=== PATIENT | female | born 1945 | race Hispanic/Latino ===

== ENCOUNTER → 2017-05-29 | Outpatient (CLI) | payer OTHER ==
[~2017-05-29] VITALS: Ht 157.5 cm; Wt 84.5 kg
[~2017-05-29] MED LIST: CALC-190 PO; CALC-909 PO; FERR-82 PO; HEPARIN SODIUM 1000UNIT/ML 10ML VIAL ONE; LACTATED RINGERS 1000ML 1,000 ML IV ONE; OMEP40CA37 PO
[2017-05-29 14:22] VITALS: BP 166/78
[2017-05-29 14:27] LABS: APPEARANCE,URINE Cloudy (CLEAR); BILIRUBIN,URINE Large (NEGATIVE); GLUCOSE, URINE (UA) Negative (NEGATIVE); KETONES,URINE Negative (NEGATIVE); LEUKOCYTE ESTERASE ,URINE Moderate (NEGATIVE); NITRATE,URINE Positive (NEGATIVE); OCCULT BLOOD,URINE Negative (NEGATIVE); PH,URINE 5.5 (5.0-8.0); PROTEIN,URINE Trace (NEGATIVE)
[2017-05-29 14:32] LABS: COLOR,URINE Amber (YELLOW)
[2017-05-29 14:42] LABS: ALBUMIN 3.3 g/dL (3.5-5.0); BILIRUBIN,TOTAL 15.4 mg/dL (0.2-1.0); CREATININE 0.6 mg/dL (0.5-1.5); POTASSIUM 4.3 mmol/L (3.5-5.1); TOTAL PROTEIN, SERUM 6.8 g/dL (6.0-8.3)
[2017-05-29 14:46] LABS: HEMATOCRIT 38.9 % (36-48); MEAN CORPUSCULAR HEMOGLOBIN 27.6 pg (27.0-33.0); MEAN CORPUSCULAR HGB CONC 33.9 g/dL (32.0-36.0); MEAN CORPUSCULAR VOLUME 81.3 fL (79-99); PLATELET COUNT (AUTO) 196 K/uL (130-400); RED BLOOD CELL COUNT(AUTO) 4.78 MIL/uL (4.00-5.50); RED CELL DISTRIBUTION WIDTH 17.4 % (11.0-15.5)
[2017-05-29 14:57] LABS: BILIRUBIN,DIRECT 12.3 mg/dL (0.0-0.3)
[2017-05-29 15:09] LABS: EOSINOPHILS % (MANUAL) 4 % (1-6); LYMPHOCYTES % (MANUAL) 18 % (22-44); MONOCYTES % (MANUAL) 11 % (2-9); REACTIVE LYMPHOCYTES 6 % (0-0); SEGMENTED NEUTROPHILS % 61 % (40-70)
[2017-05-29 15:10] LABS: MAN.DIFF COMMENT-IMPRESSION MANUAL DIFFERENTIAL; PLATELET MORPHOLOGY COMMENT ADEQUATE
[2017-05-29 15:32] LABS: BACTERIA,URINE Few /HPF (None Seen); RBC,URINE None Seen /HPF (0-1)
[2017-05-29 15:33] LABS: AMORPHOUS SEDIMENT,UR Few /LPF (None Seen); MUCUS,URINE Few LPF (None Seen)
[2017-05-31 06:14] VITALS: BP 141/81
[2017-05-31 06:35] LABS: ALBUMIN 3.1 g/dL (3.5-5.0); TOTAL PROTEIN, SERUM 6.6 g/dL (6.0-8.3)
== END | disposition home or self-care (01) ==
LOC: DAH 10:00 → EDSTATUS 13:30 → DAH 05-31 05:49
PROVIDERS: ATTEND Surgery
DX: K80.10 Calculus of gallbladder with chronic cholecystitis without obstruction (principal)
CPT/HCPCS: 36415; 80048; 80076; 81001; 85025; 87088

== ENCOUNTER → 2017-06-01 | Outpatient (CLI) | payer OTHER ==
[~2017-06-01] MED LIST changes: -HEPARIN SODIUM 1000UNIT/ML 10ML VIAL ONE; -LACTATED RINGERS 1000ML 1,000 ML IV ONE
== END | disposition home or self-care (01) ==
LOC: RAH 07:15
PROVIDERS: ATTEND Surgery
DX: K80.64 Calculus of gallbladder and bile duct with chronic cholecystitis without obstruction (principal); K44.9 Diaphragmatic hernia without obstruction or gangrene; R93.49 Abnormal radiologic findings on diagnostic imaging of other urinary organs
CPT/HCPCS: 74181

== ENCOUNTER → 2017-06-20 | Day surgery (SDC) | payer OTHER ==
[~2017-06-20] VITALS: Ht 154.9 cm; Wt 82.1 kg
[~2017-06-20] MED LIST changes: +FENTANYL CITRATE PF 50 MCG/1 ML 2ML VIAL ONE; +GLUCAGON 1MG KIT 1 MG ML ONE; +INDOMETHACIN 50 MG SUPP.RECT RC SCH; +ISOVUE-370 50ML VIAL IV ONE; +MIDAZOLAM HCL 1 MG/ML 2ML VIAL ONE; +PROPOFOL 10 MG/ML 20ML VIAL IV ONE
[2017-06-20 11:29] VITALS: BP 170/71
[2017-06-20 12:32] VITALS: BP 104/62
== END ==
LOC: SUH 08:40
PROVIDERS: ATTEND Internal Medicine
DX: K80.50 Calculus of bile duct without cholangitis or cholecystitis without obstruction (principal); R17 Unspecified jaundice
CPT/HCPCS: 43260; 74330; A4606; C1769; J1610; J2250; J2704; J3010; Q9967

== ENCOUNTER 2017-07-04 08:23 | Day surgery (SDC) | payer OTHER ==
[~2017-07-04] VITALS: Ht 157.5 cm; Wt 83.9 kg
[~2017-07-04 08:23] MED LIST changes: -CALC-909 PO; -FENTANYL CITRATE PF 50 MCG/1 ML 2ML VIAL ONE; -GLUCAGON 1MG KIT 1 MG ML ONE; -INDOMETHACIN 50 MG SUPP.RECT RC SCH; -ISOVUE-370 50ML VIAL IV ONE; -MIDAZOLAM HCL 1 MG/ML 2ML VIAL ONE; -PROPOFOL 10 MG/ML 20ML VIAL IV ONE; +SODIUM CHLORIDE 0.9% 1000ML 1,000 ML IV ONE
[2017-07-04 08:28] VITALS: BP 171/83
[2017-07-04] MEDS ORDERED: ISOVUE-370 50ML VIAL IV ONE (09:03)
[2017-07-04] MEDS ORDERED: PROPOFOL 10 MG/ML 20ML VIAL IV ONE (09:06)
[2017-07-04] MEDS ORDERED: INDOMETHACIN 50 MG SUPP.RECT RC SCH (09:30)
[2017-07-24] MEDS ORDERED: CALC-909 PO (11:36)
== END 2017-07-04 10:38 | disposition home or self-care (01) ==
LOC: ENDO 08:23 → DAH 08:23 → ENDO 10:38
PROVIDERS: ATTEND Internal Medicine Gastroenterology
DX: K83.8 Other specified diseases of biliary tract (principal); D64.89 Other specified anemias; K21.9 Gastro-esophageal reflux disease without esophagitis; E66.9 Obesity, unspecified; Z87.19 Personal history of other diseases of the digestive system; Z79.899 Other long term (current) drug therapy
CPT/HCPCS: 43277; 74330; A4606; C1769; C1773; J2704; J7030; Q9967

== ENCOUNTER 2017-07-26 06:45 | Day surgery (SDC) | payer OTHER ==
[2017-07-24 11:05] VITALS: BP 160/80
[2017-07-24 11:21] LABS: BASOPHILS % (AUTO) 0.7 % (0.0-5.0); EOSINOPHILS % (AUTO) 2.2 % (0.0-8.0); HEMATOCRIT 37.3 % (36-48); LYMPHOCYTES % (AUTO) 31.1 % (21.0-51.0); MEAN CORPUSCULAR HGB CONC 34.6 g/dL (32.0-36.0); MEAN CORPUSCULAR VOLUME 83.7 fL (79-99); MONOCYTES % (AUTO) 8.9 % (3.0-13.0); NEUTROPHILS % (AUTO) 57.1 % (40.0-77.0); NUCLEATED RED BLOOD CELLS 0.1 % (0.0-0.19); PLATELET COUNT (AUTO) 233 K/uL (130-400); RED BLOOD CELL COUNT(AUTO) 4.46 MIL/uL (4.00-5.50); RED CELL DISTRIBUTION WIDTH 16.9 % (11.0-15.5); WHITE BLOOD COUNT (AUTO) 4.6 K/uL (4.8-10.8)
[2017-07-24 11:35] LABS: ALBUMIN 3.3 g/dL (3.5-5.0); BILIRUBIN,DIRECT 0.2 mg/dL (0.0-0.3); BILIRUBIN,TOTAL 0.3 mg/dL (0.2-1.0); CREATININE 0.8 mg/dL (0.5-1.5); POTASSIUM 4.5 mmol/L (3.5-5.1); TOTAL PROTEIN, SERUM 6.8 g/dL (6.0-8.3)
[2017-07-26] VITALS (14 sets, daily range): BP systolic 114–154; BP diastolic 59–90
[~2017-07-26] VITALS: Ht 154.9 cm; Wt 82.9 kg
[~2017-07-26 06:45] MED LIST changes: -CALC-190 PO; +CALC-909 PO; -SODIUM CHLORIDE 0.9% 1000ML 1,000 ML IV ONE
[2017-07-26] MEDS ORDERED: LACTATED RINGERS 1000ML 1,000 ML IV ONE (08:04)
[2017-07-26] MEDS ORDERED: GLYCOPYRROLATE 0.2 MG/ML 5 ML VIAL ONE (08:21)
[2017-07-26] MEDS ORDERED: LIDOCAINE PF 2% 5ML ABBOJECT ONE (08:21)
[2017-07-26] MEDS ORDERED: ONDANSETRON HCL 4 MG/2 ML VIAL ONE (08:21)
[2017-07-26] MEDS ORDERED: DEXAMETHASONE SOD PHOSPHATE 10MG/ML 1ML VIAL ONE (08:21)
[2017-07-26] MEDS ORDERED: NEOSTIGMINE 5MG/5ML SYR IV ONE (08:22)
[2017-07-26] MEDS ORDERED: SUCCINYLCHOLINE 200MG/10ML SYR ONE (08:22)
[2017-07-26] MEDS ORDERED: PROPOFOL 10 MG/ML 20ML VIAL IV ONE (08:22)
[2017-07-26] MEDS ORDERED: FENTANYL CITRATE PF 50 MCG/1 ML 2ML VIAL ONE (08:22)
[2017-07-26] MEDS ORDERED: MIDAZOLAM HCL 1 MG/ML 2ML VIAL ONE (08:22)
[2017-07-26] MEDS ORDERED: HEPARIN SODIUM 1000UNIT/ML 10ML VIAL ONE (08:32)
[2017-07-26] MEDS ORDERED: MORPHINE SULFATE 4 MG/1ML SYG ONE (09:57)
== END 2017-07-26 11:45 | disposition home or self-care (01) ==
LOC: DAH 06:45
PROVIDERS: ATTEND Surgery
DX: K80.12 Calculus of gallbladder with acute and chronic cholecystitis without obstruction (principal); Z68.34 Body mass index [BMI] 34.0-34.9, adult; E66.9 Obesity, unspecified
CPT/HCPCS: 36415; 47562; 80048; 80076; 85025; 88304; A4450; A4510; A4600; C1769 ×4; J0330; J1100; J1644; J2001; J2250; J2270; J2405; J2704; J2710; J3010; J3490; J7030; J7120

== ENCOUNTER 2020-05-19 11:36 | Observation (INO) | payer OTHER, MEDICARE ==
[~2020-05-19 11:36] MED LIST changes: +OMEP40CA21 PO; -OMEP40CA37 PO
[2020-05-19 12:17] LABS: BASOPHILS % (AUTO) 0.3 % (0.0-5.0); EOSINOPHILS % (AUTO) 0.1 % (0.0-8.0); HEMATOCRIT 22.7 % (36-48); LYMPHOCYTES % (AUTO) 11.6 % (21.0-51.0); MEAN CORPUSCULAR HEMOGLOBIN 23.5 pg (27.0-33.0); MEAN CORPUSCULAR HGB CONC 30.8 g/dL (32.0-36.0); MEAN CORPUSCULAR VOLUME 76.2 fL (79-99); NEUTROPHILS % (AUTO) 77.4 % (40.0-77.0); NUCLEATED RED BLOOD CELLS 0.3 % (0.0-0.19); PLATELET COUNT (AUTO) 289 K/uL (130-400); RED BLOOD CELL COUNT(AUTO) 2.98 MIL/uL (4.00-5.50); WHITE BLOOD COUNT (AUTO) 8.9 K/uL (4.8-10.8)
[2020-05-19] MEDS ORDERED: ACETAMINOPHEN 650 MG SUPPOSITORY RC PRN (12:30)
[2020-05-19] MEDS ORDERED: DIPHENHYDRAMINE HCL 25 MG CAPSULE PO PRN (12:30)
[2020-05-19] MEDS ORDERED: CLONIDINE HCL 0.1 MG TABLET PO PRN ×3 (12:30)
[2020-05-19] MEDS ORDERED: ACETAMINOPHEN 325 MG TAB PO PRN ×2 (12:30)
[2020-05-19] MEDS ORDERED: ONDANSETRON 4MG INJ IVP PRN ×2 (12:30)
[2020-05-19] MEDS ORDERED: ZOLPIDEM TARTRATE 5 MG TAB PO PRN (12:30)
[2020-05-19 12:33] LABS: CREATININE 0.9 mg/dL (0.5-1.5)
[2020-05-19 12:37] LABS: ALBUMIN 3.4 g/dL (3.5-5.0); BILIRUBIN,TOTAL 0.3 mg/dL (0.2-1.0); TOTAL PROTEIN, SERUM 6.6 g/dL (6.0-8.3)
[2020-05-19] MEDS ORDERED: 0.9%NACL 1000ML 1,000 ML IV ONE (16:51)
[2020-05-19 16:57] LABS: RETICULOCYTE % (AUTO) 2.57 % (0.42-2.23)
[2020-05-19 17:11] LABS: INR 1.01 (0.85-1.15)
[2020-05-19 17:12] LABS: % IRON SATURATION 19.7 % (22-44)
[2020-05-19 17:41] LABS: THYROID STIMULATING HORMONE 0.55 uIU/mL (0.36-3.74)
[2020-05-19] MEDS: LACTATED RINGERS 1000ML 1,000 ML IV SCH (20:30)
[2020-05-19] MEDS: PANTOPRAZOLE 40 MG TAB DR PO SCH (21:00)
[2020-05-19] MEDS ORDERED: PANTOPRAZOLE 40 MG TAB DR ONE (21:55)
[2020-05-20 01:05] VITALS: BP 154/78
[2020-05-20 03:49] VITALS: BP 140/68
[2020-05-20 04:42] LABS: HEMATOCRIT 25.5 % (36-48); MEAN CORPUSCULAR HEMOGLOBIN 23.8 pg (27.0-33.0); MEAN CORPUSCULAR VOLUME 76.8 fL (79-99); NUCLEATED RED BLOOD CELLS 0.4 % (0.0-0.19); RED BLOOD CELL COUNT(AUTO) 3.32 MIL/uL (4.00-5.50); RED CELL DISTRIBUTION WIDTH 17.2 % (11.0-15.5); WHITE BLOOD COUNT (AUTO) 5.6 K/uL (4.8-10.8)
[2020-05-20 05:15] LABS: CREATININE 0.7 mg/dL (0.5-1.5); POTASSIUM 4.2 mmol/L (3.5-5.1)
[2020-05-20 08:02] VITALS: BP 119/58
[2020-05-20] MEDS: LACTATED RINGERS 1000ML 1,000 ML IV SCH ×2 (09:51→22:34)
[2020-05-20] MEDS: POLYETHYLENE GLYCOL 3350 17 GM POWD.PACK PO SCH (09:52)
[2020-05-20] MEDS: FERROUS SULFATE 325 MG TABLET.DR PO SCH ×2 (09:52→20:53)
[2020-05-20] MEDS: ASCORBIC ACID 500 MG TAB PO SCH ×2 (09:53→20:53)
[2020-05-20] MEDS: PANTOPRAZOLE 40 MG TAB DR PO SCH ×2 (09:53→20:53)
[2020-05-20 12:00] VITALS: BP 142/63
[2020-05-20 16:00] VITALS: BP 103/51
[2020-05-20 17:49] LABS: HEMATOCRIT 29.2 % (36-48)
[2020-05-20] MEDS ORDERED: COMPOUND IV MISC 1 EACH IVSOLN MISC PRN (19:15)
[2020-05-20 19:44] LABS: % IRON SATURATION 4.1 % (22-44)
[2020-05-20 20:00] VITALS: BP 129/62
[2020-05-21] VITALS: BP 133/72
[2020-05-21 04:00] VITALS: BP 132/67
[2020-05-21 04:04] LABS: HEMATOCRIT 26.4 % (36-48); MEAN CORPUSCULAR HEMOGLOBIN 24.1 pg (27.0-33.0); MEAN CORPUSCULAR HGB CONC 31.1 g/dL (32.0-36.0); MEAN CORPUSCULAR VOLUME 77.6 fL (79-99); NUCLEATED RED BLOOD CELLS 0.4 % (0.0-0.19); RED BLOOD CELL COUNT(AUTO) 3.4 MIL/uL (4.00-5.50); RED CELL DISTRIBUTION WIDTH 17.9 % (11.0-15.5)
[2020-05-21] MEDS: LACTATED RINGERS 1000ML 1,000 ML IV SCH (04:09)
[2020-05-21 04:16] LABS: CREATININE 0.8 mg/dL (0.5-1.5)
[2020-05-21] MEDS ORDERED: ASCO500T20 PO (08:54)
[2020-05-21] MEDS ORDERED: FERR324T4 PO (08:54)
[2020-05-21] MEDS ORDERED: IRON SUCROSE COMPLEX 100 MG in 0.9%NACL 50ML 50 ML IV SCH (09:00)
[2020-05-21] MEDS: PANTOPRAZOLE 40 MG TAB DR PO SCH (09:06)
[2020-05-21] MEDS: FERROUS SULFATE 325 MG TABLET.DR PO SCH (09:06)
[2020-05-21] MEDS: ASCORBIC ACID 500 MG TAB PO SCH (09:06)
[2020-05-21] MEDS: POLYETHYLENE GLYCOL 3350 17 GM POWD.PACK PO SCH (09:07)
== END 2020-05-21 15:00 | disposition home or self-care (01) ==
LOC: EDH 11:36 → EDHIP 11:37 → 4BH 22:27
PROVIDERS: ADMIT Internal Medicine; ATTEND Internal Medicine
DX: D50.9 Iron deficiency anemia, unspecified (principal); K92.2 Gastrointestinal hemorrhage, unspecified; I10 Essential (primary) hypertension; E87.1 Hypo-osmolality and hyponatremia; R79.89 Other specified abnormal findings of blood chemistry; E11.9 Type 2 diabetes mellitus without complications; E78.00 Pure hypercholesterolemia, unspecified; Z90.49 Acquired absence of other specified parts of digestive tract; Z79.899 Other long term (current) drug therapy
CPT/HCPCS: 36415 ×3; 36430; 71045 ×2; 80048 ×2; 80053; 82270; 82607; 82728 ×2; 83540; 83550; 84443; 85014; 85018; 85025; 85027 ×2; 85378; 85610; 86850; 86900; 86901; 86923 ×2; 87338; 96361 ×2; 96365; 99284; G0378 ×51; J1756; J7030; J7120 ×2; P9016 ×2

== ENCOUNTER → 2020-06-17 | Outpatient (CLI) | payer OTHER, MEDICARE ==
[~2020-06-17] MED LIST changes: +ASCO500T20 PO; -FERR-82 PO; +FERR324T4 PO; +OMEP40CA13 PO; -OMEP40CA21 PO
== END | disposition home or self-care (01) ==
LOC: RAH 13:14
PROVIDERS: ATTEND Internal Medicine
DX: R60.0 Localized edema (principal)
CPT/HCPCS: 93970

== ENCOUNTER → 2021-02-22 | Outpatient (CLI) | payer OTHER, MEDICARE ==
[~2021-02-22] MED LIST changes: -OMEP40CA13 PO; +OMEP40CA21 PO
== END | disposition home or self-care (01) ==
LOC: RAH 12:35
PROVIDERS: ATTEND Internal Medicine
DX: M25.761 Osteophyte, right knee (principal); R60.0 Localized edema
CPT/HCPCS: 73560; 93970